=== PATIENT | male | born 1995 | race African-American/Black ===

== ENCOUNTER 2019-08-25 18:14 | Emergency (ER) | payer BC ==
[2019-08-25 18:25] VITALS: BP 124/65
[2019-08-25] MEDS ORDERED: DIPH/PERTUSS(ACELL)/TETANUS VAC/PF 0.5 ML SYR (>=10YO) IM ONE (18:46)
[2019-08-25] MEDS ORDERED: LIDOCAINE 1% INJ (10 MG/ML) 10 ML MDV INJ ONE (18:49)
[2019-08-25] MEDS ORDERED: LIDOCAINE 1% INJ-PF (10 MG/ML) 30 ML SDV INJ ONE (18:51)
--- NOTE | 2019-08-25 19:48 | ER Document Report ---
ED Hand/Wrist Injury - General Chief Complaint: Finger Injury Stated Complaint: FISH HOOK IN LEFT INDEX FINGER Time Seen by Provider: 08/25/19 18:44 Primary Care Provider: [facility] [Provider Group] - Follow up as needed Mode of Arrival: Ambulatory Information source: Patient Notes: Patient is a 24-year-old male comes emergency room complaint of having a fishhook stuck in his left index finger. Patient states he was fishing his friend caught a fish and went to take a look at his mouth fish jerked and the 2 barbs of the trouble hook went into patient's left index finger. Fish got away. Patient's friend attempted to pull out the 2 barbs were unsuccessful because of pain discomfort. They used wire cutters and cut off the 2 barbs in the finger leaving approximately 1/8 inch of metal sticking out. Patient is here for those to be removed. - HPI Injury to: Index finger Onset: Just prior to arrival Where: Outdoors Timing: Constant, Still present Quality of pain: Achy Severity: Moderate Pain Level: 3 - Related Data Allergies/Adverse Reactions: No Known Allergies Allergy (Unverified 08/25/19 18:43) Past Medical History - General Information source: Patient - Social History Smoking Status: Former Smoker Chew tobacco use (# tins/day): No Frequency of alcohol use: Occasional Drug Abuse: None Family History: Reviewed & Not Pertinent Patient has homicidal ideation: No Review of Systems - Review of Systems Constitutional: No symptoms reported EENT: No symptoms reported Cardiovascular: No symptoms reported Respiratory: No symptoms reported Gastrointestinal: No symptoms reported Genitourinary: No symptoms reported Male Genitourinary: No symptoms reported Musculoskeletal: See HPI, Other - Fishhooks and finger Skin: See HPI, Other - Puncture wounds to the left index finger Hematologic/Lymphatic: No symptoms reported Neurological/Psychological: No symptoms reported -: Yes All other systems reviewed and negative Physical Exam - Vital signs Vitals: Temp Pulse Resp BP Pulse Ox 98.4 F 70 16 124/65 98 08/25/19 18:20 08/25/19 18:20 08/25/19 18:20 08/25/19 18:20 08/25/19 18:20 Interpretation: Normal - Notes Notes: PHYSICAL EXAMINATION: GENERAL: Well-appearing, well-nourished and in no acute distress. HEAD: Atraumatic, normocephalic. LUNGS: Breath sounds clear to auscultation bilaterally and equal. No wheezes rales or rhonchi. HEART: Regular rate and rhythm without murmurs Musculoskeletal: Examination patient's area of concern is his left index finger. Patient has 2 hooks in the distal tip of his left index finger very close together. It had originally been a trouble hook only one hook did not hook him the other 2 are embedded in that distal tip of the finger. Currently there is no bleeding going on patient has cut down the shafts of those trouble hooks to about an 8 inch above the skin. Patient has good cap refill in nailbeds of the finger. He has full range of motion at the DIP of that index finger. NEUROLOGICAL: Cranial nerves grossly intact. Normal speech, normal gait. Normal sensory, motor exams PSYCH: Normal mood, normal affect. SKIN: Patient has 2 puncture wounds from the tube piece trouble hook in the left index finger there is no sign of erythema or exudates there is no sign of infection. Course - Re-evaluation Re-evalutation: 08/26/19 01:03 This is my fishhook procedure note I cleaned the area with Betadine. I then used 1% lidocaine with a 27-gauge 1 inch needle and a 3 mL syringe and I injected approximately a half a mL into the left distal tip each site had a opening at the puncture lia where the hook was located therefore I did a local infiltration. I waited approximately 3 minutes I then took a pair of hemostats and hooked onto what little shaft of the hook was left. I was able to use a 16- gauge Cathlon and was able to follow the bend in the hook going through the skin around to cover the ramón and was able to back the hook out. I did this same procedure on the second hook and remove the entire ramón and hook. This worked very well in both hooks were removed with barbs intact. Patient was very happy with this procedure he had no pain at all. And we allowed it to bleed for a few minutes and then placed on a Band-Aid. Patient has been placed on Doxy Zosyn for coverage. - Vital Signs Vital signs: Temp Pulse Resp BP Pulse Ox 98.4 F 70 16 124/65 98 08/25/19 18:38 08/25/19 18:20 08/25/19 18:20 08/25/19 18:20 08/25/19 18:20 Discharge - Discharge Clinical Impression: Gooding injury to finger Qualifiers: Encounter type: initial encounter Laterality: left Qualified Code(s): S69.92XA - Unspecified injury of left wrist, hand and finger(s), initial encounter Condition: Stable Disposition: HOME, SELF-CARE Additional Instructions: We have removed 2 of the fishhook barbs from your fingers. We got all of the metal out. You have bled substantially and that is good to clean out the wound. I am placing you on antibiotics because of this being upon type water and we will place you on the antibiotic that will kill most of those germs. When she did no one put in the back reminded that even after the antibiotic is finished monitor the finger for several weeks to make sure it does not look red swollen or have increased amount of pain. If at any time you notice that you have increased swelling redness or discharge from that finger to return to ER for reevaluation. Please take all of the antibiotics as prescribed. You can take Tylenol and Motrin together this will help ease the discomfort and pain. You can soak it in some soapy you water or Epson salt water which ever you have at home. I do that 2 or 3 times a day for the next 24 to 48 hours. Prescriptions: Doxycycline Hyclate 100 mg PO BID #20 tablet.dr Forms: Elevated Blood Pressure Referrals: [facility] [Provider Group] - Follow up as needed
== END 2019-08-25 20:22 | disposition home or self-care (01) ==
LOC: ER 18:14
DX: Z23 Encounter for immunization (principal); S60.451A Superficial foreign body of left index finger, initial encounter; M79.645 Pain in left finger(s); W22.8XXA Striking against or struck by other objects, initial encounter; Z87.891 Personal history of nicotine dependence
CPT/HCPCS: 99283; 90471; 90715; 10120; J3490